=== PATIENT | male | born 1995 | race Two or more races ===

== ENCOUNTER 2024-03-07 19:11 | Emergency (ER) | payer MEDICAID ==
[~2024-03-07] VITALS: Ht 175.3 cm; Wt 77.1 kg
[2024-03-07 19:49] VITALS: BP 134/79; TEMP 98.2; O2SAT 100
[2024-03-07] MEDS ORDERED: TDAP [DIPH/PERTUSSIS/TET] 0.5 ML VIAL IM ONE (20:26)
[2024-03-07] MEDS: TDAP [DIPH/PERTUSSIS/TET] 0.5 ML VIAL IM ONE (20:28)
== END 2024-03-07 21:05 | disposition home or self-care (01) ==
LOC: ER 19:20
DX: S01.111A Laceration without foreign body of right eyelid and periocular area, initial encounter (principal); Z88.1 Allergy status to other antibiotic agents; W01.0XXA Fall on same level from slipping, tripping and stumbling without subsequent striking against object, initial encounter; Y93.89 Activity, other specified; Y92.89 Other specified places as the place of occurrence of the external cause; Y99.8 Other external cause status
CPT/HCPCS: 90715